=== PATIENT | male | born 1975 | race African-American/Black ===

== ENCOUNTER 2022-04-26 09:25 | Emergency (ER) | payer OTHER, BC ==
[~2022-04-26] VITALS: Ht 180.3 cm; Wt 77.3 kg
[2022-04-26 09:31] VITALS: TEMP 97.5
[2022-04-26] MEDS ORDERED: ZOFRAN ODT4 MG PO (10:50)
[2022-04-26 10:57] VITALS: BP 125/92; PULSE 71
== END 2022-04-26 11:02 | disposition home or self-care (01) ==
LOC: COL.ER 09:25
DX: S06.0XAA Concussion with loss of consciousness status unknown, initial encounter (principal); Z28.310 Unvaccinated for COVID-19; V49.9XXA Car occupant (driver) (passenger) injured in unspecified traffic accident, initial encounter; Y92.410 Unspecified street and highway as the place of occurrence of the external cause